=== PATIENT | female | born 1965 | race Two or more races ===

== ENCOUNTER 2017-07-27 21:38 | Emergency (ER) | payer OTHER ==
[~2017-07-27] VITALS: Ht 162.6 cm; Wt 61.2 kg
[2017-07-27 21:58] VITALS: BP 128/74; Ht 162.6 cm; Wt 61.2 kg
== END 2017-07-28 02:55 | disposition left against medical advice (07) ==
LOC: ED 21:38
DX: Z53.21 Procedure and treatment not carried out due to patient leaving prior to being seen by health care provider (principal)